=== PATIENT | female | born 1945 | race Caucasian/White ===

== ENCOUNTER 2019-08-06 10:30 | Outpatient (RCR) | payer MEDICARE, OTHER, SELFPAY ==
--- NOTE | 2019-06-07 17:30 | PT.OIE ---
Current Diagnoses Cystocele, unspecified (06/07/19) Other symptoms and signs involving the musculoskeletal system (06/07/19) Unspecified urinary incontinence (06/07/19) Visit Care Team Role Provider Type Margot Reyna MD Attending Provider Physician Specialty: Family Practice Address: [address] [place] [address], [id number] Email: Physical Therapy Initial Evaluation PT-OP-A Visit Information Start: 06/03/19 17:50 Freq: Status: Active Protocol: Document 06/07/19 10:37 LRN (Rec: 06/07/19 11:25 LRN [id number]) Out-Patient Physical Therapy Visit Information Visit Information Visit Type Initial Evaluation Visit Start Time 10:37 Visit Stop Time 11:25 Total Visit Minutes 48 Visit Number 1 Number of TELEVISION SPECIALIST Visits 0 Evaluation Information Evaluation Date 06/07/19 Precautions Precautions General arthritis, Slightly elevated blood pressure, no medication, Bruises easily, Irregular heartbeat with occasional SOB (normal ~70). BP ~130/70. PT-OP-B Current Condition Start: 06/03/19 17:50 Freq: Status: Active Protocol: Document 06/07/19 10:37 LRN (Rec: 06/07/19 11:25 LRN [id number]) Current Condition History of Current Condition Onset Date 1yr ago Current Complaints Feeling PF is open or tissues falling out. Leaks only with coughing History of Current Condition Pt reports she felt extra tissue in the PF like she was sitting on something, and felt dry. She reports a mild sensation of falling out or feeling open. Was restarted on Estrogen creme 2-3x/week. Denies pain. Pt has not had any children. Prior Treatments and Tests None Future Testing and Treatments Planned Inter-vaginal lift of bladder. Developmental History Developmental History Went to Urinary specialist Anita Lo, Chief of Urology at [facility], near [facility], and recommended PT before discussing of surgery. Treatment Goals Patient/Caregiver Goals Pt goal is to eliminate the feeling of sitting on tissue and falling out. Wants to learn what to do to prevent worsening of problem. 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 Can go several hours without urinating. Has been wearing liners (ultra skinny, 7th generation) Current Functional Impairments (Reported) Functional Limitations- ADL's Sitting on tissues. Dribbling urine, wears liner day and night (ultra skinny, not bladder leakage liners). 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 Live on [facility]). , no children. PT-OP-C Subjective Start: 06/03/19 17:50 Freq: Status: Active Protocol: Document 06/07/19 10:37 LRN (Rec: 06/07/19 11:25 LRN [id number]) OP-PT Subjective Patient Comments Patient Comments Was told by to increase fiber. PT-OP-I Pelvic Floor Start: 06/03/19 17:50 Freq: Status: Active Protocol: Document 06/07/19 10:37 LRN (Rec: 06/07/19 11:25 LRN [id number]) Pelvic Floor Assessment Urine Urinary Symptoms Prolapse,Falling Out Feeling/ Heavy Leakage Size Small Leakage Cause Cough Leaks Per Day unknown Pads Used In 24 Hours 1 Urine Pad Type Panty Liner Bowel Bowel Symptoms Constipation Other Bowel Symptoms Constipation sometimes. Bowel Movement Frequency Every other day at least Pelvic Clock Pelvic Clock Other [place] hardened fecal matter in Rectum Prolapse Cystocele Grade 1 Rectocele Grade 1 Perineal Descent Resting Absent Bearing Present Contraction Ability Manual Muscle Testing Left 1 Manual Muscle Testing Right 2 Manual Muscle Testing Anterior 1 Manual Muscle Testing Posterior 3 Muscle Endurance (Seconds) 2 Number of Quick Contractions In 10 3 Seconds Comments Pelvic Floor Comments Perineum is red. PT-OP-J Posture/Palpation/Skin Start: 06/03/19 17:50 Freq: Status: Active Protocol: Document 06/07/19 10:37 LRN (Rec: 06/07/19 11:25 LRN [id number]) Posture Evaluation Position Standing Evaluation View all positions T-Spine Posture Neutral L-Spine Posture Neutral Shoulder Posture (L) Elevated Pelvis Posture (L) Rotated Anterior,(R) Rotated Anterior Hip Posture (L) Flexed,(R) Flexed Ankle/Foot Posture (R) Forefoot Abducted Foot Arch (L) Medium Arch,(R) Medium Arch PT-OP-K Range of Motion Start: 06/03/19 17:50 Freq: Status: Active Protocol: Document 06/07/19 10:37 LRN (Rec: 06/07/19 11:25 LRN [id number]) Lumbar Spine Range of Motion Lumbar Spine Active Degrees Testing Position Standing Flexion 90 Extension 20 Lateral Flexion Left 8 Lateral Flexion Right 8 Hip Goniometric Range of Motion Hip Right Passive Testing Position Supine Straight Leg Raise 115 Internal Rotation 40 External Rotation 50 Left Passive Testing Position Supine Straight Leg Raise 115 Internal Rotation 45 External Rotation 50 PT-OP-M Strength Start: 06/03/19 17:50 Freq: Status: Active Protocol: Document 06/07/19 10:37 LRN (Rec: 06/07/19 11:25 LRN [id number]) Trunk Strength Trunk Manual Muscle Testing Comments Loss of core control with MMT of L hip flexion and ext. Hip Strength Hip Manual Muscle Testing Right Flexion (L2) 5 Normal Abduction 5 Normal Adduction 4 Good External Rotation 5 Normal Internal Rotation 5 Normal Comments Pain L SIJ with MMT Hip AD Left Flexion (L2) 5 Normal Abduction 5 Normal Adduction 5 Normal External Rotation 5 Normal Internal Rotation 5 Normal PT-OP-Q Treatments Start: 06/03/19 17:50 Freq: Status: Active Protocol: Document 06/07/19 10:37 LRN (Rec: 06/07/19 18:50 LRN [id number]) Self-Care/Home Management Treatment Education Patient Education Home Exercise Program Other Education Educated pt in use of Bladder Diary and I/S pt to complete 7 days of diary. Activities Self-Care/Home Management Activities Issued & reviewed Kegel ex's for long holds, quick flicks and aggrevators. PT-OP-T Assessment and Plan Start: 06/03/19 17:50 Freq: Status: Active Protocol: Document 06/07/19 10:37 LRN (Rec: 06/07/19 11:25 LRN [id number]) Physical Therapy Assessment Rehab Potential Rehabilitation Potential Good Evaluation Complexity Number of Personal Factors/Comorbidities 1-2 Number of Body Systems Impaired 4 or More Clinical Presentation at Evaluation Stable Impairments Impairments Integument,Posture,ROM, Strength Other Impairments Cystocele, Grade I Rectocele, Grade I Constipation Other Concerns Barriers to Rehabilitation Transportation limits living on [facility]. Goals Four Impairment Cytocele and Rectocele grade I Short Term Goal (STG) Pt will be able to report daily bowel movements (BMs) and proper technique for having a BM. STG Duration 07/09/19 Intermediate Goal (LTG) Pt will no longer feel a bulging of tissue in the PF. LTG Duration 08/06/19 Three Impairment Decreased strength of lateral greenwood and anterior PF muscle ( 1-2/5) Short Term Goal (STG) Improve lateral wall strength of the PF to 3/5. STG Duration 07/09/19 Expense Clerk Goal (LTG) Improve anterior PF strength to 3/5 LTG Duration 08/06/19 Two Impairment Poor PF endurance of 2-3 sec hold prior to fatigue Intermediate Goal (LTG) Pt will be able to hold a PF contraction 10 secs prior to fatigue. LTG Duration 08/06/19 One Impairment Lacks appropriate HEP Expense Clerk Goal (LTG) Pt will be independent in a self care HEP. LTG Duration 08/06/19 Assessment Summary Assessment Pt presents with a grade I cystocele and rectocele with complaints of occasional urinary dribbling with coughing. The pt's level of constipation is probably exacerbating her condition; therefore further education and training is needed to improve her method of having a BM to decrease pressure on the PF. Further assessment is needed to determine if the pt can isolate her PF contractions and the strength of her contractions. The pt lacks the coordination to draw the PF up and in and may need biofeedback training to improve her PF contraction. She has good trunk mobility and fairly good hip mobility but demonstrates some core instability on the left with possible SIJ dysfunction. The pt will benefit from skilled physical therapy to improve core/pelvic stability, improve PF strength and endurance and to educate the pt in proper voiding techniques (BMs), anatomy of the PF and self care on a HEP. Physical Therapy Plan Frequency and Duration Frequency of Treatment 1x/Week Plan of Care Start Date 06/07/19 Plan of Care End Date 08/06/19 Therapeutic Interventions Therapeutic Interventions Coordination Training,Home Exercise Program,Joint Mobilizations,Manual Therapy, Neuromuscular Re-education, Patient/Caregiver Education, Self-Care/Home Management,Soft Tissue Mobilization, Therapeutic Exercises Modalities Cold Pack/Ice Massage Next Visit Focus/Plan Next Note Type Treatment Note Next Visit Plan Review Bladder Diary and Kegels with attention to use of accessory muscles with her PF contraction. EMG biofeedback assessment and training with a vaginal electrode and training for awareness of a proper PF contraction. Discuss PF anatomy and impact the bowels can have on the urinary system . Start deep breathing with LE Roll in/out ex and progress PF strength as tolerated. Discuss other ex's that may be impacting her PF.
--- NOTE | 2019-07-02 16:53 | PT.OTN ---
Current Diagnoses Cystocele, unspecified (07/02/19) Other symptoms and signs involving the musculoskeletal system (07/02/19) Unspecified urinary incontinence (07/02/19) Physical Therapy Treatment Note PT-OP-A Visit Information Start: 06/03/19 17:50 Freq: Status: Active Protocol: Document 07/02/19 09:49 LRN (Rec: 07/02/19 10:37 LRN [id number]) Out-Patient Physical Therapy Visit Information Visit Information Visit Type Treatment Note Visit Start Time 09:50 Visit Stop Time 10:37 Total Visit Minutes 47 Visit Number 2 Number of RESEARCH CONTRACTS SUPERVISOR Visits 0 Evaluation Information Evaluation Date 06/07/19 Precautions Precautions General arthritis, Slightly elevated blood pressure, no medication, Bruises easily, Irregular heartbeat with occasional SOB (normal ~70). BP ~130/70. PT-OP-B Current Condition Start: 06/03/19 17:50 Freq: Status: Active Protocol: Document 06/07/19 10:37 LRN (Rec: 06/07/19 11:25 LRN [id number]) Current Condition History of Current Condition Onset Date 1yr ago Current Complaints Feeling PF is open or tissues falling out. Leaks only with coughing History of Current Condition Pt reports she felt extra tissue in the PF like she was sitting on something, and felt dry. She reports a mild sensation of falling out or feeling open. Was restarted on Estrogen creme 2-3x/week. Denies pain. Pt has not had any children. Prior Treatments and Tests None Future Testing and Treatments Planned Inter-vaginal lift of bladder. Developmental History Developmental History Went to Urinary specialist Anita Lo, Chief of Urology at [facility], near [facility], and recommended PT before discussing of surgery. Treatment Goals Patient/Caregiver Goals Pt goal is to eliminate the feeling of sitting on tissue and falling out. Wants to learn what to do to prevent worsening of problem. 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 Can go several hours without urinating. Has been wearing liners (ultra skinny, 7th generation) Current Functional Impairments (Reported) Functional Limitations- ADL's Sitting on tissues. Dribbling urine, wears liner day and night (ultra skinny, not bladder leakage liners). 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 Live on [place] ([facility]). , no children. PT-OP-C Subjective Start: 06/03/19 17:50 Freq: Status: Active Protocol: Document 07/02/19 09:49 LRN (Rec: 07/02/19 10:37 LRN [id number]) OP-PT Subjective Patient Comments Patient Comments Not using pads as much and noticed a difference with the exercises (Kegels), unless taking Estrace. Getting stronger, doesn't feel like sitting on the insides and doesn't feel as dry. PT-OP-I Pelvic Floor Start: 06/03/19 17:50 Freq: Status: Active Protocol: Document 07/02/19 09:49 LRN (Rec: 07/02/19 10:37 LRN [id number]) Pelvic Floor Assessment SEMG (uV) Baseline 0.9 Quick Contraction 5.1 Recruitment Pattern Good Holding Poor/Slow Stability of Hold Poor/Slow SEMG Stability of Rest Fair Comments Pelvic Floor Comments Pt in supine with legs on bolster. Uses Gluteal and abdominal muscles more on Quick Flicks than Long Holds. PT-OP-J Posture/Palpation/Skin Start: 06/03/19 17:50 Freq: Status: Active Protocol: Document 06/07/19 10:37 LRN (Rec: 06/07/19 11:25 LRN [id number]) Posture Evaluation Position Standing Evaluation View all positions T-Spine Posture Neutral L-Spine Posture Neutral Shoulder Posture (L) Elevated Pelvis Posture (L) Rotated Anterior,(R) Rotated Anterior Hip Posture (L) Flexed,(R) Flexed Ankle/Foot Posture (R) Forefoot Abducted Foot Arch (L) Medium Arch,(R) Medium Arch PT-OP-K Range of Motion Start: 06/03/19 17:50 Freq: Status: Active Protocol: Document 06/07/19 10:37 LRN (Rec: 06/07/19 11:25 LRN [id number]) Lumbar Spine Range of Motion Lumbar Spine Active Degrees Testing Position Standing Flexion 90 Extension 20 Lateral Flexion Left 8 Lateral Flexion Right 8 Hip Goniometric Range of Motion Hip Right Passive Testing Position Supine Straight Leg Raise 115 Internal Rotation 40 External Rotation 50 Left Passive Testing Position Supine Straight Leg Raise 115 Internal Rotation 45 External Rotation 50 PT-OP-M Strength Start: 06/03/19 17:50 Freq: Status: Active Protocol: Document 06/07/19 10:37 LRN (Rec: 06/07/19 11:25 LRN [id number]) Trunk Strength Trunk Manual Muscle Testing Comments Loss of core control with MMT of L hip flexion and ext. Hip Strength Hip Manual Muscle Testing Right Flexion (L2) 5 Normal Abduction 5 Normal Adduction 4 Good External Rotation 5 Normal Internal Rotation 5 Normal Comments Pain L SIJ with MMT Hip AD Left Flexion (L2) 5 Normal Abduction 5 Normal Adduction 5 Normal External Rotation 5 Normal Internal Rotation 5 Normal PT-OP-Q Treatments Start: 06/03/19 17:50 Freq: Status: Active Protocol: Document 07/02/19 09:49 LRN (Rec: 07/02/19 10:37 LRN [id number]) Therapeutic Exercises Supine Exercises PF awareness training Supine Exercise Name PF awareness training of different ex positions and leg positions PF strengthening w/biofeedback Supine Exercise Name Quick Flicks & Long Holds for isolation of PF contraction Equipment Used EMG Biofeedback Self-Care/Home Management Treatment Education Patient Education Home Exercise Program Other Education Review of Bladder Diary and discussion of changes. Pt educated in Pelvic anatomy. Discussed at length Bowel management. Activities Self-Care/Home Management Activities Discussed POC with pt decreasing # of visits per month. Issued Pelvic anatomy handout. Pt to continue Kegel ex's. PT-OP-T Assessment and Plan Start: 06/03/19 17:50 Freq: Status: Active Protocol: Document 07/02/19 09:49 LRN (Rec: 07/02/19 10:37 LRN [id number]) Physical Therapy Assessment Goals Four Impairment Cytocele and Rectocele grade I Short Term Goal (STG) Pt will be able to report daily bowel movements (BMs) and proper technique for having a BM. STG Duration 07/09/19 Fiscal Agent Goal (LTG) Pt will no longer feel a bulging of tissue in the PF. LTG Duration 08/06/19 (07/02/19: GOAL MET to pt's satisfaction). Three Impairment Decreased strength of lateral greenwood and anterior PF muscle ( 1-2/5) Short Term Goal (STG) Improve lateral wall strength of the PF to 3/5. STG Duration 07/09/19 Penitentiary Goal (LTG) Improve anterior PF strength to 3/5 LTG Duration 08/06/19 Two Impairment Poor PF endurance of 2-3 sec hold prior to fatigue Penitentiary Goal (LTG) Pt will be able to hold a PF contraction 10 secs prior to fatigue. LTG Duration 08/06/19 One Impairment Lacks appropriate HEP Penitentiary Goal (LTG) Pt will be independent in a self care HEP. LTG Duration 08/06/19 (07/06/19: Progressing) Assessment Summary Assessment Pt is very happy with her progress and is no longer noticing much the feeling of her organs falling out. Her voiding frequency has decreased and she is very happy to be sleeping through the night. Per bladder diary review she appears to need more fluid intake, but voiding frequency is good at every 2- 4 hours. She has long voiding times, indicating poor urinary voiding flow probably due to prolapse of bladder and probably mild urethra kinking . Further PF strengthening is needed as per EMG biofeedback her PF strength is weak with avg contraction for Quick Flicks (20 reps) of 5.1uV and Long Holds (10 reps) of 3.7uV, as noted with assist from her Gluteals and abdominals during Quick Flicks and slightly during Long Holds. Physical Therapy Plan Frequency and Duration Frequency of Treatment 1x/Week Plan of Care Start Date 06/07/19 Plan of Care End Date 08/06/19 Next Visit Focus/Plan Next Note Type Treatment Note Next Visit Plan Plan: Assess PF internally. Train for proper breathing with exercise and practice exercise/breathing. Initiate LE roll in/outs with breathing and progressive program; review her current ex program that may be impacting her PF. Emphasis on isolation of PF contractions. EMG biofeedback assessment and training with a vaginal electrode and training for awareness of a proper PF contraction if needed. Decrease therapy to 1x/3 wks for final follow up unless pt wants and needs further progression of program.
--- NOTE | 2019-07-16 16:33 | PT.OTN ---
Current Diagnoses Cystocele, unspecified (07/16/19) Other symptoms and signs involving the musculoskeletal system (07/16/19) Unspecified urinary incontinence (07/16/19) Physical Therapy Treatment Note PT-OP-A Visit Information Start: 06/03/19 17:50 Freq: Status: Active Protocol: Document 07/16/19 10:39 LRN (Rec: 07/16/19 11:17 LRN [id number]) Out-Patient Physical Therapy Visit Information Visit Information Visit Type Treatment Note Visit Start Time 10:39 Visit Stop Time 11:17 Total Visit Minutes 38 Visit Number 3 Number of LEARN TO SWIM INSTRUCTOR Visits 0 Evaluation Information Evaluation Date 06/07/19 Precautions Precautions General arthritis, Slightly elevated blood pressure, no medication, Bruises easily, Irregular heartbeat with occasional SOB (normal ~70). BP ~130/70. PT-OP-B Current Condition Start: 06/03/19 17:50 Freq: Status: Active Protocol: Document 06/07/19 10:37 LRN (Rec: 06/07/19 11:25 LRN [id number]) Current Condition History of Current Condition Onset Date 1yr ago Current Complaints Feeling PF is open or tissues falling out. Leaks only with coughing History of Current Condition Pt reports she felt extra tissue in the PF like she was sitting on something, and felt dry. She reports a mild sensation of falling out or feeling open. Was restarted on Estrogen creme 2-3x/week. Denies pain. Pt has not had any children. Prior Treatments and Tests None Future Testing and Treatments Planned Inter-vaginal lift of bladder. Developmental History Developmental History Went to Urinary specialist Anita Lo, Chief of Urology at [facility]rology, near [facility], and recommended PT before discussing of surgery. Treatment Goals Patient/Caregiver Goals Pt goal is to eliminate the feeling of sitting on tissue and falling out. Wants to learn what to do to prevent worsening of problem. 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 Can go several hours without urinating. Has been wearing liners (ultra skinny, 7th generation) Current Functional Impairments (Reported) Functional Limitations- ADL's Sitting on tissues. Dribbling urine, wears liner day and night (ultra skinny, not bladder leakage liners). 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 Live on [place] ([facility]). , no children. PT-OP-C Subjective Start: 06/03/19 17:50 Freq: Status: Active Protocol: Document 07/16/19 10:39 LRN (Rec: 07/16/19 16:10 LRN [id number]) OP-PT Subjective Patient Comments Patient Comments States not feeling bulge when sitting, only when washing. Extremely happy she is not having to get up in the middle of the night anymore. Thinks she is having mostly daily BM 's. PT-OP-I Pelvic Floor Start: 06/03/19 17:50 Freq: Status: Active Protocol: Document 07/16/19 10:39 LRN (Rec: 07/16/19 16:10 LRN [id number]) Pelvic Floor Assessment Bowel Bowel Symptoms Constipation Other Bowel Symptoms Constipation sometimes. Bowel Movement Frequency Not often. Prolapse Cystocele Grade 1 Rectocele Grade 1 Perineal Descent Resting Absent Bearing Present Contraction Ability Manual Muscle Testing Left 1 Manual Muscle Testing Right 2 Manual Muscle Testing Anterior 1 Manual Muscle Testing Posterior 3 Muscle Endurance (Seconds) 3 Comments Pelvic Floor Comments Pt in supine with legs on bolster. Pt able to isolate PF contraction from gluteal and abdominal muscles. Quick Contractions not felt. PT-OP-J Posture/Palpation/Skin Start: 06/03/19 17:50 Freq: Status: Active Protocol: Document 06/07/19 10:37 LRN (Rec: 06/07/19 11:25 LRN [id number]) Posture Evaluation Position Standing Evaluation View all positions T-Spine Posture Neutral L-Spine Posture Neutral Shoulder Posture (L) Elevated Pelvis Posture (L) Rotated Anterior,(R) Rotated Anterior Hip Posture (L) Flexed,(R) Flexed Ankle/Foot Posture (R) Forefoot Abducted Foot Arch (L) Medium Arch,(R) Medium Arch PT-OP-K Range of Motion Start: 06/03/19 17:50 Freq: Status: Active Protocol: Document 06/07/19 10:37 LRN (Rec: 06/07/19 11:25 LRN [id number]) Lumbar Spine Range of Motion Lumbar Spine Active Degrees Testing Position Standing Flexion 90 Extension 20 Lateral Flexion Left 8 Lateral Flexion Right 8 Hip Goniometric Range of Motion Hip Right Passive Testing Position Supine Straight Leg Raise 115 Internal Rotation 40 External Rotation 50 Left Passive Testing Position Supine Straight Leg Raise 115 Internal Rotation 45 External Rotation 50 PT-OP-M Strength Start: 06/03/19 17:50 Freq: Status: Active Protocol: Document 06/07/19 10:37 LRN (Rec: 06/07/19 11:25 LRN [id number]) Trunk Strength Trunk Manual Muscle Testing Comments Loss of core control with MMT of L hip flexion and ext. Hip Strength Hip Manual Muscle Testing Right Flexion (L2) 5 Normal Abduction 5 Normal Adduction 4 Good External Rotation 5 Normal Internal Rotation 5 Normal Comments Pain L SIJ with MMT Hip AD Left Flexion (L2) 5 Normal Abduction 5 Normal Adduction 5 Normal External Rotation 5 Normal Internal Rotation 5 Normal PT-OP-Q Treatments Start: 06/03/19 17:50 Freq: Status: Active Protocol: Document 07/16/19 10:39 LRN (Rec: 07/16/19 11:17 LRN [id number]) Therapeutic Exercises Supine Exercises Bridge ball squeeze w/hip in IR Supine Exercise Name Bridge w/feet spread for ball squeeze Reps/Minutes 5' Comments Emphasis on anterior PF contraction. Extra time taken for rest periods. Ball Squeeze w/hips in IR Supine Exercise Name Hooklie w/feet spread for ball squeeze Reps/Minutes 5' Comments Emphasis on anterior PF contraction. Extra time taken for rest periods. Ball Squeeze Supine Exercise Name Ball Squeeze w/emphasis on L hip AD Reps/Minutes 5' Comments Extra time taken for rest periods. PF strengthening w/biofeedback Supine Exercise Name Quick Flicks & Long Holds Reps/Minutes 5' Comments Manual biofeedback. Extra time taken for rest periods. Sidelying Exercises Hip AD w/Kegel Sidelying Exercise Name Hip AD w/Kegel, Quick Flicks & Long Holds Reps/Minutes 14' Comments Resting time 2x holding. Extra time taken for rest periods. Self-Care/Home Management Treatment Education Patient Education Home Exercise Program Activities Self-Care/Home Management Activities Issued & reviewed HEP: Hip AD sidelie, supine and sitting; Bridging with hip AD/IR. PT-OP-T Assessment and Plan Start: 06/03/19 17:50 Freq: Status: Active Protocol: Document 07/16/19 10:39 LRN (Rec: 07/16/19 11:17 LRN [id number]) Physical Therapy Assessment Goals Four Impairment Cytocele and Rectocele grade I Short Term Goal (STG) Pt will be able to report daily bowel movements (BMs) and proper technique for having a BM. STG Duration 07/09/19 (07/16/19: GOAL MET to pt's satisfaction) Long-Term Goal (LTG) Pt will no longer feel a bulging of tissue in the PF. LTG Duration 08/06/19 (07/02/19: GOAL MET to pt's satisfaction). Three Impairment Decreased strength of lateral greenwood and anterior PF muscle ( 1-2/5) Short Term Goal (STG) Improve lateral wall strength of the PF to 3/5. STG Duration 07/09/19 (07/16/19: No change) Long-Term Goal (LTG) Improve anterior PF strength to 3/5 LTG Duration 08/06/19 (07/16/19: No change ) Two Impairment Poor PF endurance of 2-3 sec hold prior to fatigue Mutual Fund Sales Agent Goal (LTG) Pt will be able to hold a PF contraction 10 secs prior to fatigue. LTG Duration 08/06/19 (07/16/19: Slightly improved) One Impairment Lacks appropriate HEP Long-Term Goal (LTG) Pt will be independent in a self care HEP. LTG Duration 08/06/19 (07/16/19: Progressing) Assessment Summary Assessment Pt is improved in her bowel function; therefore cystocele is less noticeable. Pt's PF strength needs further strengthening. Her posterior PF strength is improved and although strength measured hasn't changed, her strength today was in mostly isolation of her abdominal and gluteal muscles; therefore overall her PF strength has improved. Her L lateral remains weaker than the R. Physical Therapy Plan Frequency and Duration Frequency of Treatment 1x/Week Plan of Care Start Date 06/07/19 Plan of Care End Date 08/06/19 Next Visit Focus/Plan Next Note Type Treatment Note Next Visit Plan Discuss cont of therapy 1/3 weeks for progression of her HEP. Assess adherence to HEP and if time permits assess PF strength. Train for proper breathing with exercise and practice exercise/breathing. Initiate LE roll in/outs with breathing and progressive program; review her current ex program that may be impacting her PF. Check for isolation of PF contractions from abs & gluts. EMG biofeedback assessment and training with a vaginal electrode and training for awareness of a proper PF contraction if needed.
--- NOTE | 2019-08-06 18:11 | PT.OTN ---
Current Diagnoses Cystocele, unspecified (08/06/19) Other symptoms and signs involving the musculoskeletal system (08/06/19) Unspecified urinary incontinence (08/06/19) Physical Therapy Treatment Note PT-OP-A Visit Information Start: 06/03/19 17:50 Freq: Status: Active Protocol: Document 08/06/19 11:06 LRN (Rec: 08/06/19 17:57 LRN [id number]) Out-Patient Physical Therapy Visit Information Visit Information Visit Type Progress Note Visit Note Pt arrived late for appt Visit Start Time 11:06 Visit Stop Time 11:30 Total Visit Minutes 24 Visit Number 4 Number of SEWER DIGGER Visits 0 Evaluation Information Evaluation Date 06/07/19 Precautions Precautions General arthritis, Slightly elevated blood pressure, no medication, Bruises easily, Irregular heartbeat with occasional SOB (normal ~70). BP ~130/70. PT-OP-B Current Condition Start: 06/03/19 17:50 Freq: Status: Active Protocol: Document 06/07/19 10:37 LRN (Rec: 06/07/19 11:25 LRN [id number]) Current Condition History of Current Condition Onset Date 1yr ago Current Complaints Feeling PF is open or tissues falling out. Leaks only with coughing History of Current Condition Pt reports she felt extra tissue in the PF like she was sitting on something, and felt dry. She reports a mild sensation of falling out or feeling open. Was restarted on Estrogen creme 2-3x/week. Denies pain. Pt has not had any children. Prior Treatments and Tests None Future Testing and Treatments Planned Inter-vaginal lift of bladder. Developmental History Developmental History Went to Urinary specialist Anita Lo, Chief of Urology at Urology, near [facility], and recommended PT before discussing of surgery. Treatment Goals Patient/Caregiver Goals Pt goal is to eliminate the feeling of sitting on tissue and falling out. Wants to learn what to do to prevent worsening of problem. 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 Can go several hours without urinating. Has been wearing liners (ultra skinny, 7th generation) Current Functional Impairments (Reported) Functional Limitations- ADL's Sitting on tissues. Dribbling urine, wears liner day and night (ultra skinny, not bladder leakage liners). 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 Live on [facility]). , no children. PT-OP-C Subjective Start: 06/03/19 17:50 Freq: Status: Active Protocol: Document 08/06/19 11:06 LRN (Rec: 08/06/19 17:57 LRN [id number]) OP-PT Subjective Patient Comments Patient Comments Pt states she is leaking a drop first thing in the morning and is using pad because of her PF cream. She is also drinking more water. Not feeling the bulge as much . PT-OP-I Pelvic Floor Start: 06/03/19 17:50 Freq: Status: Active Protocol: Document 07/16/19 10:39 LRN (Rec: 07/16/19 16:10 LRN [id number]) Pelvic Floor Assessment Bowel Bowel Symptoms Constipation Other Bowel Symptoms Constipation sometimes. Bowel Movement Frequency Not often. Prolapse Cystocele Grade 1 Rectocele Grade 1 Perineal Descent Resting Absent Bearing Present Contraction Ability Manual Muscle Testing Left 1 Manual Muscle Testing Right 2 Manual Muscle Testing Anterior 1 Manual Muscle Testing Posterior 3 Muscle Endurance (Seconds) 3 Comments Pelvic Floor Comments Pt in supine with legs on bolster. Pt able to isolate PF contraction from gluteal and abdominal muscles. Quick Contractions not felt. PT-OP-J Posture/Palpation/Skin Start: 06/03/19 17:50 Freq: Status: Active Protocol: Document 06/07/19 10:37 LRN (Rec: 06/07/19 11:25 LRN [id number]) Posture Evaluation Position Standing Evaluation View all positions T-Spine Posture Neutral L-Spine Posture Neutral Shoulder Posture (L) Elevated Pelvis Posture (L) Rotated Anterior,(R) Rotated Anterior Hip Posture (L) Flexed,(R) Flexed Ankle/Foot Posture (R) Forefoot Abducted Foot Arch (L) Medium Arch,(R) Medium Arch PT-OP-K Range of Motion Start: 06/03/19 17:50 Freq: Status: Active Protocol: Document 06/07/19 10:37 LRN (Rec: 06/07/19 11:25 LRN [id number]) Lumbar Spine Range of Motion Lumbar Spine Active Degrees Testing Position Standing Flexion 90 Extension 20 Lateral Flexion Left 8 Lateral Flexion Right 8 Hip Goniometric Range of Motion Hip Right Passive Testing Position Supine Straight Leg Raise 115 Internal Rotation 40 External Rotation 50 Left Passive Testing Position Supine Straight Leg Raise 115 Internal Rotation 45 External Rotation 50 PT-OP-M Strength Start: 06/03/19 17:50 Freq: Status: Active Protocol: Document 06/07/19 10:37 LRN (Rec: 06/07/19 11:25 LRN [id number]) Trunk Strength Trunk Manual Muscle Testing Comments Loss of core control with MMT of L hip flexion and ext. Hip Strength Hip Manual Muscle Testing Right Flexion (L2) 5 Normal Abduction 5 Normal Adduction 4 Good External Rotation 5 Normal Internal Rotation 5 Normal Comments Pain L SIJ with MMT Hip AD Left Flexion (L2) 5 Normal Abduction 5 Normal Adduction 5 Normal External Rotation 5 Normal Internal Rotation 5 Normal PT-OP-Q Treatments Start: 06/03/19 17:50 Freq: Status: Active Protocol: Document 08/06/19 11:06 LRN (Rec: 08/06/19 17:57 LRN [id number]) Therapeutic Exercises Supine Exercises LE Roll in/out Supine Exercise Name LE roll in/outs with deep breathing Reps/Minutes 10 Deep Breathing Supine Exercise Name Deep breathing Reps/Minutes 3' Sidelying Exercises Reverse Clamshell Sidelying Exercise Name Reverse Clamshell instructions Reps/Minutes 3' Standing Exercises Hamstring stretch w/PF contraction Standing Exercise Name Hamstring stretch w/PF contraction Reps/Minutes 4' Self-Care/Home Management Treatment Education Patient Education Home Exercise Program Activities Self-Care/Home Management Activities Issued & Reviewed HEP: Active standing Hamstring stretch with PF contraction; sidelie reverse clamshell, LE roll in/out. PT-OP-T Assessment and Plan Start: 06/03/19 17:50 Freq: Status: Active Protocol: Document 08/06/19 11:06 LRN (Rec: 08/06/19 18:09 LRN [id number]) Physical Therapy Assessment Rehab Potential Rehabilitation Potential Good Evaluation Complexity Number of Personal Factors/Comorbidities 1-2 Number of Body Systems Impaired 4 or More Clinical Presentation at Evaluation Stable Impairments Impairments Integument,Posture,ROM, Strength Other Impairments Cystocele, Grade I Rectocele, Grade I Constipation Goals Four Impairment Cytocele and Rectocele grade I Short Term Goal (STG) Pt will be able to report daily bowel movements (BMs) and proper technique for having a BM. STG Duration 07/09/19 (07/16/19: GOAL MET to pt's satisfaction) Penitentiary Goal (LTG) Pt will no longer feel a bulging of tissue in the PF. LTG Duration 08/06/19 (07/02/19: GOAL MET to pt's satisfaction). Three Impairment Decreased strength of lateral greenwood and anterior PF muscle ( 1-2/5) Short Term Goal (STG) Improve lateral wall strength of the PF to 3/5. STG Duration 07/09/19 (07/16/19: No change) Um Rn Goal (LTG) Improve anterior PF strength to 3/5 LTG Duration 08/06/19 (07/16/19: No change ) Two Impairment Poor PF endurance of 2-3 sec hold prior to fatigue Um Rn Goal (LTG) Pt will be able to hold a PF contraction 10 secs prior to fatigue. LTG Duration 08/06/19 (07/16/19: Slightly improved) One Impairment Lacks appropriate HEP Penitentiary Goal (LTG) Pt will be independent in a self care HEP. LTG Duration 08/06/19 (08/06/19: Progressing) Assessment Summary Assessment The pt arrived late for her appt; therefore her PF strength and endurance was not assessed. Her symptoms have very much improved. She is experiencing minor urinary leakage and is sometimes feeling a bulge in her PF region. The pt could benefit from further skilled physical therapy to progress her HEP and strengthen her lateral greewnood of the PF and improve her strength and endurance. The pt is willing to return for at least one more visit to further her exercise program and for assessment of her PF. She may opt to be discharged to her HEP at that time or continue therapy, further discussion is needed. Physical Therapy Plan Frequency and Duration Frequency of Treatment 1x/Week Plan of Care Start Date 06/07/19 Plan of Care End Date 09/21/19 Therapeutic Interventions Therapeutic Interventions Coordination Training,Home Exercise Program,Joint Mobilizations,Manual Therapy, Neuromuscular Re-education, Patient/Caregiver Education, Self-Care/Home Management,Soft Tissue Mobilization, Therapeutic Exercises Next Visit Focus/Plan Next Note Type Treatment Note Next Visit Plan Discuss DC or cont of therapy 1/3 weeks for progression of her HEP. -Assess adherence to HEP and assess PF strength/endurance. -Train for proper breathing with exercise and practice exercise/breathing. -Check for isolation of PF contractions from abs & gluts. -Progress LE roll in/outs with breathing; review her current ex program that may be impacting her PF. -EMG biofeedback assessment and training with a vaginal electrode and training for awareness of a proper PF contraction if needed.
--- NOTE | 2019-08-06 18:12 | PT.OPPOC ---
Physical, Occupational & Speech Therapy At [facility] Current Diagnoses Cystocele, unspecified (08/06/19) Other symptoms and signs involving the musculoskeletal system (08/06/19) Unspecified urinary incontinence (08/06/19) Visit Care Team Role Provider Type Margot Reyna MD Attending Provider Physician Specialty: Family Practice Address: [address] [place] [address], [facility] Email: Plan Of Care PT-OP-T Assessment and Plan Start: 06/03/19 17:50 Freq: Status: Active Protocol: Document 08/06/19 11:06 LRN (Rec: 08/06/19 18:09 LRN [id number]) Physical Therapy Assessment Rehab Potential Rehabilitation Potential Good Evaluation Complexity Number of Personal Factors/Comorbidities 1-2 Number of Body Systems Impaired 4 or More Clinical Presentation at Evaluation Stable Impairments Impairments Integument,Posture,ROM, Strength Other Impairments Cystocele, Grade I Rectocele, Grade I Constipation Goals Four Impairment Cytocele and Rectocele grade I Short Term Goal (STG) Pt will be able to report daily bowel movements (BMs) and proper technique for having a BM. STG Duration 07/09/19 (07/16/19: GOAL MET to pt's satisfaction) Snf Goal (LTG) Pt will no longer feel a bulging of tissue in the PF. LTG Duration 08/06/19 (07/02/19: GOAL MET to pt's satisfaction). Three Impairment Decreased strength of lateral greenwood and anterior PF muscle ( 1-2/5) Short Term Goal (STG) Improve lateral wall strength of the PF to 3/5. STG Duration 07/09/19 (07/16/19: No change) Rock Wool Applicator Goal (LTG) Improve anterior PF strength to 3/5 LTG Duration 08/06/19 (07/16/19: No change ) Two Impairment Poor PF endurance of 2-3 sec hold prior to fatigue Snf Goal (LTG) Pt will be able to hold a PF contraction 10 secs prior to fatigue. LTG Duration 08/06/19 (07/16/19: Slightly improved) One Impairment Lacks appropriate HEP Rock Wool Applicator Goal (LTG) Pt will be independent in a self care HEP. LTG Duration 08/06/19 (08/06/19: Progressing) Assessment Summary Assessment The pt arrived late for her appt; therefore her PF strength and endurance was not assessed. Her symptoms have very much improved. She is experiencing minor urinary leakage and is sometimes feeling a bulge in her PF region. The pt could benefit from further skilled physical therapy to progress her HEP and strengthen her lateral greenwood of the PF and improve her strength and endurance. The pt is willing to return for at least one more visit to further her exercise program and for assessment of her PF. She may opt to be discharged to her HEP at that time or continue therapy, further discussion is needed. Physical Therapy Plan Frequency and Duration Frequency of Treatment 1x/Week Plan of Care Start Date 06/07/19 Plan of Care End Date 09/21/19 Therapeutic Interventions Therapeutic Interventions Coordination Training,Home Exercise Program,Joint Mobilizations,Manual Therapy, Neuromuscular Re-education, Patient/Caregiver Education, Self-Care/Home Management,Soft Tissue Mobilization, Therapeutic Exercises Next Visit Focus/Plan Next Note Type Treatment Note Next Visit Plan Discuss DC or cont of therapy 1/3 weeks for progression of her HEP. -Assess adherence to HEP and assess PF strength/endurance. -Train for proper breathing with exercise and practice exercise/breathing. -Check for isolation of PF contractions from abs & gluts. -Progress LE roll in/outs with breathing; review her current ex program that may be impacting her PF. -EMG biofeedback assessment and training with a vaginal electrode and training for awareness of a proper PF contraction if needed. Plan of Care Dates Plan of Care Start Date 06/07/19 Plan of Care End Date 09/21/19 Electronically Signed by: Becky Bergman, PT 08/06/19 [id number] Please Sign and Return: I have reviewed this Plan of Care and certify that the skilled therapy services above are required to meet the patient?s needs. Physician Signature Date Printed Name and Credentials Clinical Instructor Signature Printed Name and Credentials
--- NOTE | 2019-10-25 15:28 | PT-OP ANOTE ---
Unable to reach pt by phone. Msg left for call back tomorrow 8-10a, or for pt to call back for better time for call back.
--- NOTE | 2020-03-20 17:29 | PT-OP ANOTE ---
Per telephone, pt has been catching up on other medical visits since reopening after COVID 19 pandemic. She is doing ex's and applying information gained from her therapy and will seek a new PT referral if she feels the need to return for more pelvic floor rehabilitation. Pt agreeable to DC from PT.
--- NOTE | 2020-03-20 17:35 | PT.OPDS ---
Current Diagnoses Cystocele, unspecified (08/06/19) Other symptoms and signs involving the musculoskeletal system (08/06/19) Unspecified urinary incontinence (08/06/19) Visit Care Team Role Provider Type Margot Reyna MD Attending Provider Physician Specialty: Family Practice Address: [address] [place] [address], [id number] Email: Visit Number Visit Number 4 Discharge Summary PT-OP-B Current Condition Start: 06/03/19 17:50 Freq: Status: Active Protocol: Document 06/07/19 10:37 LRN (Rec: 06/07/19 11:25 LRN [id number]) Current Condition History of Current Condition Onset Date 1yr ago Current Complaints Feeling PF is open or tissues falling out. Leaks only with coughing History of Current Condition Pt reports she felt extra tissue in the PF like she was sitting on something, and felt dry. She reports a mild sensation of falling out or feeling open. Was restarted on Estrogen creme 2-3x/week. Denies pain. Pt has not had any children. Prior Treatments and Tests None Future Testing and Treatments Planned Inter-vaginal lift of bladder. Developmental History Developmental History Went to Urinary specialist Anita Lo, [facility] of [facility] near [facility], and recommended PT before discussing of surgery. Treatment Goals Patient/Caregiver Goals Pt goal is to eliminate the feeling of sitting on tissue and falling out. Wants to learn what to do to prevent worsening of problem. 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 Can go several hours without urinating. Has been wearing liners (ultra skinny, 7th generation) Current Functional Impairments (Reported) Functional Limitations- ADL's Sitting on tissues. Dribbling urine, wears liner day and night (ultra skinny, not bladder leakage liners). 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 Live on [place] ([facility]). , no children. PT-OP-C Subjective Start: 06/03/19 17:50 Freq: Status: Active Protocol: Document 08/06/19 11:06 LRN (Rec: 08/06/19 17:57 LRN [id number]) OP-PT Subjective Patient Comments Patient Comments Pt states she is leaking a drop first thing in the morning and is using pad because of her PF cream. She is also drinking more water. Not feeling the bulge as much . PT-OP-I Pelvic Floor Start: 06/03/19 17:50 Freq: Status: Active Protocol: Document 07/16/19 10:39 LRN (Rec: 07/16/19 16:10 LRN [id number]) Pelvic Floor Assessment Bowel Bowel Symptoms Constipation Other Bowel Symptoms Constipation sometimes. Bowel Movement Frequency Not often. Prolapse Cystocele Grade 1 Rectocele Grade 1 Perineal Descent Resting Absent Bearing Present Contraction Ability Manual Muscle Testing Left 1 Manual Muscle Testing Right 2 Manual Muscle Testing Anterior 1 Manual Muscle Testing Posterior 3 Muscle Endurance (Seconds) 3 Comments Pelvic Floor Comments Pt in supine with legs on bolster. Pt able to isolate PF contraction from gluteal and abdominal muscles. Quick Contractions not felt. PT-OP-J Posture/Palpation/Skin Start: 06/03/19 17:50 Freq: Status: Active Protocol: Document 06/07/19 10:37 LRN (Rec: 06/07/19 11:25 LRN [id number]) Posture Evaluation Position Standing Evaluation View all positions T-Spine Posture Neutral L-Spine Posture Neutral Shoulder Posture (L) Elevated Pelvis Posture (L) Rotated Anterior,(R) Rotated Anterior Hip Posture (L) Flexed,(R) Flexed Ankle/Foot Posture (R) Forefoot Abducted Foot Arch (L) Medium Arch,(R) Medium Arch PT-OP-K Range of Motion Start: 06/03/19 17:50 Freq: Status: Active Protocol: Document 06/07/19 10:37 LRN (Rec: 06/07/19 11:25 LRN [id number]) Lumbar Spine Range of Motion Lumbar Spine Active Degrees Testing Position Standing Flexion 90 Extension 20 Lateral Flexion Left 8 Lateral Flexion Right 8 Hip Goniometric Range of Motion Hip Right Passive Testing Position Supine Straight Leg Raise 115 Internal Rotation 40 External Rotation 50 Left Passive Testing Position Supine Straight Leg Raise 115 Internal Rotation 45 External Rotation 50 PT-OP-M Strength Start: 06/03/19 17:50 Freq: Status: Active Protocol: Document 06/07/19 10:37 LRN (Rec: 06/07/19 11:25 LRN [id number]) Trunk Strength Trunk Manual Muscle Testing Comments Loss of core control with MMT of L hip flexion and ext. Hip Strength Hip Manual Muscle Testing Right Flexion (L2) 5 Normal Abduction 5 Normal Adduction 4 Good External Rotation 5 Normal Internal Rotation 5 Normal Comments Pain L SIJ with MMT Hip AD Left Flexion (L2) 5 Normal Abduction 5 Normal Adduction 5 Normal External Rotation 5 Normal Internal Rotation 5 Normal PT-OP-T Assessment and Plan Start: 06/03/19 17:50 Freq: Status: Active Protocol: Document 03/20/20 17:31 LRN (Rec: 03/20/20 17:35 LRN [id number]) Physical Therapy Assessment Goals Four Impairment Cytocele and Rectocele grade I Short Term Goal (STG) Pt will be able to report daily bowel movements (BMs) and proper technique for having a BM. STG Duration 07/09/19 (07/16/19: GOAL MET to pt's satisfaction) Fdc Goal (LTG) Pt will no longer feel a bulging of tissue in the PF. LTG Duration 08/06/19 (07/02/19: GOAL MET to pt's satisfaction). Three Impairment Decreased strength of lateral greenwood and anterior PF muscle ( 1-2/5) Short Term Goal (STG) Improve lateral wall strength of the PF to 3/5. STG Duration 07/09/19 (07/16/19: No change) Fdc Goal (LTG) Improve anterior PF strength to 3/5 LTG Duration 08/06/19 (07/16/19: No change ) Two Impairment Poor PF endurance of 2-3 sec hold prior to fatigue Bungy Jump Master Goal (LTG) Pt will be able to hold a PF contraction 10 secs prior to fatigue. LTG Duration 08/06/19 (07/16/19: Slightly improved) One Impairment Lacks appropriate HEP Fdc Goal (LTG) Pt will be independent in a self care HEP. LTG Duration 08/06/19 (08/06/19: Progressing) Assessment Summary Assessment Pt was last seen 08/06/19 prior to COVID 19 pandemic shutdown . She is doing her home ex's and applying what she had learned in therapy and feels she does not need to return to therapy at this time as she is trying to catch up on other appointments with reopening after COVID 19. The pt was unavailable for final assessment and is aware that she will need a new referral if she wants to return to physical therapy. Physical Therapy Plan Discharge Physical Therapy Discharge Reasons No Longer Attending PT Discharge Comments Pt is aware that she will need a new referral to return to therapy if she feels she needs more. Thank you for your referral.
== END 2020-03-24 09:22 ==
LOC: PHYS 10:30
PROVIDERS: Visit Provider Family Medicine
DX: N81.10 Cystocele, unspecified (principal); R32 Unspecified urinary incontinence; R29.898 Other symptoms and signs involving the musculoskeletal system
CPT/HCPCS: 97110; 97161; 97535

== ENCOUNTER 2019-10-17 12:42 | Emergency (ER) | payer MEDICARE, OTHER, SELFPAY ==
[2019-10-17 12:45] VITALS: BP 136/62; PULSE 87; RESP 16; TEMP 36.4; O2SAT 100
[2019-10-17 13:26] LABS: RBC Urine None Seen (0-5/HPF)
[2019-10-17 13:39] LABS: Bacteria Urine Occasional (0-1); Culture Indicated Urine Specimen Cultured; Squamous Epithelial Cell Urine 1-5 /HPF (0-5/HPF); WBC Urine 0-1/HPF (0-5/HPF)
--- NOTE | 2019-10-17 14:24 | DI.CT.S_ITS ---
PROCEDURE: CT ABDOMEN PELVIS W CON INDICATIONS: R flank and pain in McBurney's TECHNIQUE: After the administration of intravenous contrast, 5 mm thick sections acquired from the diaphragm to the symphysis. 5 mm coronal and sagittal reformats were acquired. For radiation dose reduction, the following was used: automated exposure control, adjustment of mA and/or kV according to patient size. COMPARISON: [facility], , CT ABDOMEN/PELVIS, 04/22/2002, 12:19. FINDINGS: Image quality: Excellent. ABDOMEN: Lung bases: Lung bases are clear. Heart size is normal. Solid organs: Liver is normal in size and enhancement. Gallbladder wall is not thickened. Biliary system is non dilated. Within the head of the pancreas, and 1.3 cm simple appearing cyst can be seen, as on series 2 image 33 and on series 4 image 14. No dilated pancreatic ducts can be seen. Spleen is normal in size and enhancement. No adrenal nodules. Kidneys demonstrate normal size and enhancement, without hydronephrosis. Peritoneum and bowel: In this patient with this given history, scrutiny is given to the appendix and right lower quadrant. A normal-appearing appendix is seen, as on series 4 image 21. No focal right lower quadrant auditory changes are seen. There is a moderate amount stool seen within colon. Nodes and vessels: No retroperitoneal or mesenteric adenopathy by size criteria. Aorta and inferior vena cava are normal in size. Miscellaneous: No ventral hernias. PELVIS: Genitourinary: Bladder wall thickness is normal. The uterus is atrophic. Miscellaneous: No inguinal hernias or adenopathy. Bones: No suspicious bony lesions. No vertebral body compression fractures. Age-appropriate bony degenerative changes are seen. IMPRESSION: Normal appendix. No focal right lower quadrant auditory changes are seen. No hydronephrosis. There is a moderate amount of stool seen within the colon. Please correlate with an underlying history of constipation. There is a 1.3 cm simple appearing cyst seen within the head of the pancreas. When clinically appropriate, please consider a followup dedicated pancreas protocol CT for further evaluation. Dictated by: Aubrey Gutierrez M.D. on 10/17/2019 at 14:43 Approved by: Aubrey Gutierrez M.D. on 10/17/2019 at 14:49
[2019-10-17 14:42] LABS: Add Manual Diff / Slide Review NO; Basophils Absolute Auto 0 /uL (0-100); Basophils Percent Auto 0.2 % (0-2); Eosinophils Absolute Auto 0 /uL (0-450); Hematocrit 42.6 % (36-46); Hemoglobin 14.3 g/dL (12.0-16.0); Lymphocytes Absolute Auto 600 /uL (1100-4500); Lymphocytes Percent Auto 4.7 % (25-40); Mean Corpuscular HGB Conc 33.6 % (30-36); Mean Corpuscular Hemoglobin 31.3 PG (26-34); Monocytes Absolute Auto 800 /uL (0-900); Monocytes Percent Auto 5.5 % (3-14); Neutrophils Absolute Auto 12300 /uL (1500-7000); Neutrophils Percent Auto 89.6 % (50-75); Platelet Count 184 X10^3/uL (150-400); Red Blood Cell Count 4.58 X10^6/uL (4.0-5.2); Red Cell Distribution Width 13.2 % (11.6-14.8); White Blood Cell Count 13.7 X10^3/uL (4.5-11.0)
--- NOTE | 2019-10-17 14:54 | ED.ABDPAIN ---
HPI - Abdominal Pain <CHARY Telles - Last Filed: 10/17/19 19:27> General Chief Complaint: Abdominal Pain Stated Complaint: moderate right side abd pain today Time Seen by Provider: 10/17/19 13:18 Source: patient Mode of arrival: Ambulatory Limitations: no limitations History of Present Illness HPI narrative: This is a 73-year-old female, nonsmoker, who presents to ED with spouse with chief complain of right flank pain radiating to right abdomen which started at 5:30 a.m. this morning which woke her up from sleep. Patient reports at that time her pain was pretty severe and rates as good 7/10. Patient reports currently she feels distal mild aches right lower quadrant and reports right flank pain has improved significantly. Patient reports pain is worse with movement and taking deep breaths. Patient had taken ibuprofen 600 mg this morning. Patient denies urinary symptoms such as urgency, frequency, dysuria, or hematuria. Patient has been feeling a little gassy and reports decreased appetite. Patient reports she is able to pass gas and had small amount of stool this morning after she had taken MiraLax and half cup of coffee. Patient denies nausea, vomiting, fever chills. Last meal was at 9:00 a.m. small amount of Polish yogurt and had taken half cup of coffee at 0 8 this morning. Patient denies previous history of abdominal surgeries but had breast biopsy and endometrial biopsies. Related Data Previous Rx's Medication Instructions Recorded albuterol sulfate [Proventil HFA] 0 IH SEE INSTRUCTIONS #1 [facility] 08/28/16 hydrochlorothiazide 12.5 mg PO QDAY #90 tab 08/28/16 Allergies Allergy/AdvReac Type Severity Reaction Status Date / Time Penicillins [PENICILLINS] Allergy Mild Unverified 10/01/17 11:49 Review of Systems <CHARY Telles - Last Filed: 10/17/19 19:27> Review of Systems Narrative: General: Denies fever, chills, fatigue, malaise, sweats. HEENT: Denies sinus pain, ear pain, sore throat, difficulty swallowing, dizziness. Respiratory: Denies dyspnea, cough, wheezing, hemoptysis, sputum. Cardiovascular: Denies chest pain, palpitations, orthopnea, edema. Gastrointestinal: See HPI : Denies dysuria, frequency, incontinence, hematuria, urinary retention, (+) right flank pain. Musculoskeletal: Denies weakness, joint pain or bony pain. Skin: Denies rash, skin lesions, or other. Neurologic: Denies weakness, headache, numbness, change in speech, confusion, seizures, incoordination. Psychiatric: No concerning psychosocial issues. 12-point review of systems is negative except for those stated above. Patient History <CHARY Telles - Last Filed: 10/17/19 19:27> Medical History (Updated 10/17/19 @ 16:44 by CHARY Telles) History of endometrial biopsy (Acute) Surgical History (Updated 10/17/19 @ 14:59 by CHARY Telles) H/O breast biopsy (Acute) Social History Smoking Status: Never smoker Smoking Status: Never smoker alcohol intake frequency: 0-2 drinks per day Substance Use Type: does not use Exam <CHARY Telles - Last Filed: 10/17/19 19:27> Narrative Exam Narrative: GEN: Alert, oriented x 3, well appearing and nourished, and in no acute distress. Head: Normal cephalic, atraumatic. No scalp or temporal tenderness, palpable mass or rash. EYES: Pupils are equal, round, and reactive to light and accommodation. Extraocular muscles are intact bilaterally. There is no subconjunctival hemorrhage, exudate and sclera non-icteric. ENT: Hearing grossly intact. Nose without bleeding, purulent discharge or deviation. Facial sinuses nontender to palpate. Mucous membrane moist, no mucosal lesion. Throat without erythema, tonsillar hypertrophy or exudate. Uvula in midline, airway patent. Neck: Trachea in midline. No JVD, non-tender without lymphadenopathy. No masses or thyroid megaly. Supple, non-tender and no meningeal signs. CARDIAC: Normal regular rate and rhythm without murmurs, gallops, or rubs. No chest wall tenderness. No peripheral edema, cyanosis or pallor. Capillary refill is less than 2 seconds. RESPIRATORY: Lungs are clear to auscultate bilaterally. No cough, wheezes, rales, or rhonchi. No stridor, respiratory distress, increase work of breathing, or accessary muscle used. ABD: Abdomen soft and non-distended. Right lower quadrant discomfort to palpate at Burney's point. No guarding to palpate. Bowel sounds are normal in all 4 quadrants. There is no palpable masses or organomegaly. EXT: Full painless ROM of all extremities with no loss of sensation, strength, effusion or edema. SKIN: Warm, dry, normal color for patient. No erythema, lesions or rash over visible areas. BACK: Nontender in spinal process without deformity or crepitance. Right flank tenderness to palpate. NEUROLOGICAL: Alert and oriented to place, time and person. Sensation and motor function intact bilaterally. No facial droops, dysphasia. PSYCHIATRIC: Good judgement and reason, without hallucinations, abnormal affect or abnormal behaviors during the examination. Initial Vital Signs Initial Vital Signs: Vital Signs Temperature 97.6 F 10/17/19 12:45 Pulse Rate 87 10/17/19 12:45 Respiratory Rate 16 10/17/19 12:45 Blood Pressure 136/62 10/17/19 12:45 Pulse Oximetry 100 10/17/19 12:45 <Silvano Diana MD - Last Filed: 10/20/19 07:49> Initial Vital Signs Initial Vital Signs: Vital Signs Temperature 97.6 F 10/17/19 12:45 Pulse Rate 87 10/17/19 12:45 Respiratory Rate 16 10/17/19 12:45 Blood Pressure 136/62 10/17/19 12:45 Pulse Oximetry 100 10/17/19 12:45 Scores <CHRAY Telles - Last Filed: 10/17/19 19:27> GCS Fairchance coma scale eye opening: Spontaneous Fairchance coma scale verbal response: Orientated Mansoor coma scale motor response: Obey commands Mansoor coma scale total score: 15 Course <CHARY Telles - Last Filed: 10/17/19 19:27> Orders Ordered: ED Orders 10/17/19 12:55 Urine Culture Stat Urine Microscopic Stat 10/17/19 14:24 CT abdomen pelvis w con Stat 10/17/19 14:30 Complete Blood Count AUTO DIFF Stat Comprehensive Metabolic Panel Stat Lipase Stat Vital Signs Vital signs: Vital Signs - 8 hr 10/17/19 12:45 10/17/19 16:55 Temperature 97.6 F Pulse Rate 87 78 Respiratory Rate 16 16 Blood Pressure 136/62 158/76 H Pulse Oximetry 100 98 <Silvano Diana MD - Last Filed: 10/20/19 07:49> Orders Ordered: ED Orders 10/17/19 12:55 Urine Culture Stat Urine Microscopic Stat 10/17/19 14:24 CT abdomen pelvis w con Stat 10/17/19 14:30 Complete Blood Count AUTO DIFF Stat Comprehensive Metabolic Panel Stat Lipase Stat Vital Signs Vital signs: Vital Signs - 8 hr 10/17/19 12:45 10/17/19 16:55 Temperature 97.6 F Pulse Rate 87 78 Respiratory Rate 16 16 Blood Pressure 136/62 158/76 H Pulse Oximetry 100 98 MDM - Abdominal Pain <Jonnathan AyalaCHARY Multani - Last Filed: 10/17/19 19:27> Differential Diagnosis Differential diagnosis: Likely abdominal pain, acute appendicitis, diverticulitis and other (Kidney infection, kidney stone) Medical Records Attestation: I reviewed the patient's medical records. Lab Data Attestation: I reviewed the patient's lab results. Result diagrams: 10/17/19 14:30 10/17/19 14:30 Labs: Lab Results 10/17/19 10/17/19 10/17/19 Range/Units 12:55 14:30 14:30 WBC 13.7 H (4.5-11.0) X10^3/uL RBC 4.58 (4.0-5.2) X10^6/uL Hgb 14.3 (12.0-16.0) g/dL Hct 42.6 (36-46) % MCV 93.0 (80-100) fL MCH 31.3 (26-34) PG MCHC 33.6 (30-36) % RDW 13.2 (11.6-14.8) % Plt Count 184 (150-400) X10^3/uL Neut % (Auto) 89.6 H (50-75) % Lymph % (Auto) 4.7 L (25-40) % Harmon % (Auto) 5.5 (3-14) % Eos % (Auto) 0.0 L (2-4) % Baso % (Auto) 0.2 (0-2) % Neut # (Auto) 71184 H (1385-5300) /uL Lymph # (Auto) 600 L (4571-2490) /uL Harmon # (Auto) 800 (0-900) /uL Eos # (Auto) 0 (0-450) /uL Baso # (Auto) 0 (0-100) /uL Sodium 136 L (137-145) mmol/L Potassium 4.1 (3.4-5.1) mmol/L Chloride 103 (98-107) mmol/L Carbon Dioxide 26 (22-32) mmol/L BUN 19 H (7-17) mg/dL Creatinine 0.70 (0.52-1.04) mg/dL Estimated GFR > 60.0 (>60) mL/min BUN/Creatinine Ratio 27.1 H (6-22) Glucose 121 H (80-110) mg/dL Calcium 9.6 (8.4-10.2) mg/dL Total Bilirubin 0.7 (0.2-1.3) mg/dL AST 62 H (14-36) IU/L ALT 43 H (<35) IU/L Alkaline Phosphatase 83 (38-126) U/L Total Protein 7.7 (6.3-8.2) g/dL Albumin 4.6 (3.5-5.0) g/dL Globulin 3.1 (1.7-4.1) g/dL Albumin/Globulin Ratio 1.5 (1.0-2.8) Lipase 84 (23-300) U/L Urine RBC None seen (0-5/HPF) Urine WBC 0-1/hpf (0-5/HPF) Ur Squamous Epith Cells 1-5 /hpf (0-5/HPF) Urine Bacteria Occasional (0-1) (None) Ur Culture Indicated? Specimen cultured Point of care testing: Urine Dip Bedside Urine Glucose Negative Bedside Urine Bilirubin - Negative Bedside Urine Ketone - Negative Urine Specific [place] 1.015 Bedside Urine Occult Blood - Negative Bedside Urine pH 6.0 Bedside Urine Protein +/- 15 Bedside Urine Urobilinogen - Negative Bedside Urine Nitrite - Negative Bedside Urine Leukocytes + [address] scan - abdomen/pelvis: Radiologist's Impression: [address] [address] [address] Scan Report Signed Patient: Aster Oneal JMR#: [id number] : 7Acct:[id number] Age/Sex: 73 / FDate of Service: 10/17/19 Loc: ED Accession Number: [id number] Procedure: CT abdomen pelvis w con Ordering Provider: Jonnathan Culver [employer] PROCEDURE: CT ABDOMEN PELVIS W CON INDICATIONS: R flank and pain in McBurney's TECHNIQUE: After the administration of intravenous contrast, 5 mm thick sections acquired from the diaphragm to the symphysis. 5 mm coronal and sagittal reformats were acquired. For radiation dose reduction, the following was used: automated exposure control, adjustment of mA and/or kV according to patient size. COMPARISON: [facility], , CT ABDOMEN/PELVIS, 04/22/2002, 12:19. FINDINGS: Image quality: Excellent. ABDOMEN: Lung bases: Lung bases are clear. Heart size is normal. Solid organs: Liver is normal in size and enhancement. Gallbladder wall is not thickened. Biliary system is non dilated. Within the head of the pancreas, and 1.3 cm simple appearing cyst can be seen, as on series 2 image 33 and on series 4 image 14. No dilated pancreatic ducts can be seen. Spleen is normal in size and enhancement. No adrenal nodules. Kidneys demonstrate normal size and enhancement, without hydronephrosis. Peritoneum and bowel: In this patient with this given history, scrutiny is given to the appendix and right lower quadrant. A normal-appearing appendix is seen, as on series 4 image 21. No focal right lower quadrant auditory changes are seen. There is a moderate amount stool seen within colon. Nodes and vessels: No retroperitoneal or mesenteric adenopathy by size criteria. Aorta and inferior vena cava are normal in size. Miscellaneous: No ventral hernias. PELVIS: Genitourinary: Bladder wall thickness is normal. The uterus is atrophic. Miscellaneous: No inguinal hernias or adenopathy. Bones: No suspicious bony lesions. No vertebral body compression fractures. Age-appropriate bony degenerative changes are seen. IMPRESSION: Normal appendix. No focal right lower quadrant auditory changes are seen. No hydronephrosis. There is a moderate amount of stool seen within the colon. Please correlate with an underlying history of constipation. There is a 1.3 cm simple appearing cyst seen within the head of the pancreas. When clinically appropriate, please consider a followup dedicated pancreas protocol CT for further evaluation. Dictated by: Aubrey Gutierrez M.D. on 10/17/2019 at 14:43 Approved by: Aubrey Gutierrez M.D. on 10/17/2019 at 14:49 [facility] Narrative Medical decision making narrative: This is a pleasant 73-year-old female who presents to ED with right flank pain radiating to right abdomen since this morning at 5:30 a.m.. Patient denies constitutional symptoms, urinary symptoms, vomiting but decreased appetite and p.o. intake. Patient reports pain increases with movement. Physical exam indicates right lower quadrant pain in McBurney's point with palpation without rebound or guarding. Patient was referred to emergency room after she was initially evaluated by EMS for further evaluation and imaging test. Serum glucose was 121. Patient had taken ibuprofen before coming into ED and reports pain as subsided a bit. There was mild leukocytosis of 13.7 with increased neutrophil of 89.6%. Chemistry test shows mild dehydration of BUN of 19, BUN/creatinine ratio of 27.1. Serum glucose was 121. Mild elevation of AST of 62 and ALT of 43. Lipase was normal as 84. Serum glucose was 121. CT test of abdomen and pelvis was obtained to rule out appendicitis or kidney stones. Kidney appears to be normal appearing without hydronephrosis or stones with normal appendix. There was moderate amount of stool in the colon. Also there is a simple appearing cyst in pancreas measuring in 1.3 cm. Patient advised to use MiraLax that she has been taking at home for constipation. Advised to follow up with primary care physician for further workup on pancreatic cyst. Patient reports she is feeling better at this time and declined anti nausea or pain medications while in ED. was positive for protein, urine leukocytes esterase without nitrites. Urine culture is pending. Return precautions were discussed with the patient and patient verbalized understanding and agreement with treatment plan. <Silvano Diana MD - Last Filed: 10/20/19 07:49> Lab Data Labs: Lab Results 10/17/19 10/17/19 10/17/19 Range/Units 12:55 14:30 14:30 WBC 13.7 H (4.5-11.0) X10^3/uL RBC 4.58 (4.0-5.2) X10^6/uL Hgb 14.3 (12.0-16.0) g/dL Hct 42.6 (36-46) % MCV 93.0 (80-100) fL MCH 31.3 (26-34) PG MCHC 33.6 (30-36) % RDW 13.2 (11.6-14.8) % Plt Count 184 (150-400) X10^3/uL Neut % (Auto) 89.6 H (50-75) % Lymph % (Auto) 4.7 L (25-40) % Harmon % (Auto) 5.5 (3-14) % Eos % (Auto) 0.0 L (2-4) % Baso % (Auto) 0.2 (0-2) % Neut # (Auto) 12049 H (2873-5118) /uL Lymph # (Auto) 600 L (3441-2207) /uL Harmon # (Auto) 800 (0-900) /uL Eos # (Auto) 0 (0-450) /uL Baso # (Auto) 0 (0-100) /uL Sodium 136 L (137-145) mmol/L Potassium 4.1 (3.4-5.1) mmol/L Chloride 103 (98-107) mmol/L Carbon Dioxide 26 (22-32) mmol/L BUN 19 H (7-17) mg/dL Creatinine 0.70 (0.52-1.04) mg/dL Estimated GFR > 60.0 (>60) mL/min BUN/Creatinine Ratio 27.1 H (6-22) Glucose 121 H (80-110) mg/dL Calcium 9.6 (8.4-10.2) mg/dL Total Bilirubin 0.7 (0.2-1.3) mg/dL AST 62 H (14-36) IU/L ALT 43 H (<35) IU/L Alkaline Phosphatase 83 (38-126) U/L Total Protein 7.7 (6.3-8.2) g/dL Albumin 4.6 (3.5-5.0) g/dL Globulin 3.1 (1.7-4.1) g/dL Albumin/Globulin Ratio 1.5 (1.0-2.8) Lipase 84 (23-300) U/L Urine RBC None seen (0-5/HPF) Urine WBC 0-1/hpf (0-5/HPF) Ur Squamous Epith Cells 1-5 /hpf (0-5/HPF) Urine Bacteria Occasional (0-1) (None) Ur Culture Indicated? Specimen cultured Point of care testing: Urine Dip Bedside Urine Glucose Negative Bedside Urine Bilirubin - Negative Bedside Urine Ketone - Negative Urine Specific [place] 1.015 Bedside Urine Occult Blood - Negative Bedside Urine pH 6.0 Bedside Urine Protein +/- 15 Bedside Urine Urobilinogen - Negative Bedside Urine Nitrite - Negative Bedside Urine Leukocytes + 70 Esterase Discharge Plan Departure Patient Disposition: Home Clinical Impression: Flank pain, Acute abdominal pain in right lower quadrant Discharge Date/Time: 10/17/19 16:56 Instructions: DI for Abdominal Pain-Adult, DI for Flank Pain Activity Restrictions/Additional Instructions: You have been diagnosed with [right flank pain radiating to right lower abdomen. Urine culture is pending. It showed small amount of leukocytes esterase without urine nitrites. Mildly elevated WBC as 13.7. Appears to be you are mildly dehydrated. Slightly elevated in AST (62) and ALT (43). Gallbladder, pancreas, spleen appears to be normal. No obvious indication for appendicitis today. Kidney appears to be normal. There is a simple appearing cyst in pancreas measuring 1.3 cm which should be followed up with your primary care doctor for further pancreas protocol CT in the future. Your pain may related to back pain in musculoskeletal origin]. What to do: *Take your medications as directed. You can take [id number] Tylenol and or Motrin as needed for pain. *Follow up with your primary care provider in 2-3 days, call for an appointment. Let them know you were seen in the ED and that we asked you to be seen in follow up. *Return to ED if you have any new, worsening, or concerning symptoms, such as [fever, vomiting, increasing pain, chest pain, breathing difficulty, blood in your urine, urinary symptoms or any acute concerns]. Prescriptions: No Action hydrochlorothiazide 12.5 MG tablet 12.5 mg PO QDAY Qty: 90 RF: 1 albuterol sulfate [Proventil HFA] 90 MCG/PUFF HFA aerosol inhaler 0 IH SEE INSTRUCTIONS Qty: 1 RF: 1 Referrals: Margot Reyna MD [Primary Care Provider] -
[2019-10-17 14:55] LABS: Alanine Aminotransferase 43 IU/L (<35); Albumin 4.6 g/dL (3.5-5.0); Albumin Globulin Ratio 1.5 (1.0-2.8); Alkaline Phosphatase 83 U/L (38-126); Aspartate Aminotransferase 62 IU/L (14-36); BUN Creatinine Ratio 27.1 (6-22); Bilirubin Total 0.7 mg/dL (0.2-1.3); Blood Urea Nitrogen 19 mg/dL (7-17); Calcium 9.6 mg/dL (8.4-10.2); Carbon Dioxide 26 mmol/L (22-32); Chloride 103 mmol/L (98-107); Estimated Glomerular Filt Rate > 60.0 mL/min (>60); Globulin 3.1 g/dL (1.7-4.1); Glucose 121 mg/dL (80-110); HEMOLYSIS 23 (0-50); Lipase 84 U/L (23-300); Potassium 4.1 mmol/L (3.4-5.1); Sodium 136 mmol/L (137-145); Total Protein 7.7 g/dL (6.3-8.2)
[2019-10-17 16:55] VITALS: BP 158/76; PULSE 78; RESP 16; O2SAT 98
== END 2019-10-17 16:56 | disposition home or self-care (01) ==
PROVIDERS: Emergency Provider Nurse Practitioner Family; PCP Family Medicine
DX: R10.31 Right lower quadrant pain (principal)
CPT/HCPCS: 36415; 74177; 80053; 81003; 81015; 83690; 85025; 87086; 99284; Q9967

== ENCOUNTER → 2021-08-10 10:12 | Outpatient (CLI) | payer MEDICARE, OTHER, SELFPAY ==
[2021-08-10 19:40] LABS: Add Manual Diff / Slide Review NO; Basophils Absolute Auto 0 /uL (0-100); Basophils Percent Auto 0.2 % (0-2); Eosinophils Absolute Auto 0 /uL (0-450); Eosinophils Percent Auto 0.8 % (2-4); Hematocrit 40.8 % (36-46); Hemoglobin 13.6 g/dL (12.0-16.0); Lymphocytes Absolute Auto 1000 /uL (1100-4500); Lymphocytes Percent Auto 24.3 % (25-40); Mean Corpuscular HGB Conc 33.3 % (30-36); Mean Corpuscular Hemoglobin 30.9 PG (26-34); Mean Corpuscular Volume 92.8 fL (80-100); Monocytes Absolute Auto 400 /uL (0-900); Monocytes Percent Auto 8.5 % (3-14); Neutrophils Absolute Auto 2800 /uL (1500-7000); Neutrophils Percent Auto 66.2 % (50-75); Platelet Count 216 X10^3/uL (150-400); Red Blood Cell Count 4.39 X10^6/uL (4.0-5.2); Red Cell Distribution Width 13.4 % (11.6-14.8); White Blood Cell Count 4.2 X10^3/uL (4.5-11.0)
[2021-08-10 19:46] LABS: Alanine Aminotransferase 29 IU/L (<35); Albumin 4.5 g/dL (3.5-5.0); Albumin Globulin Ratio 1.8 (1.0-2.8); Alkaline Phosphatase 76 U/L (38-126); Aspartate Aminotransferase 43 IU/L (14-36); BUN Creatinine Ratio 17.1 (6-22); Bilirubin Total 0.6 mg/dL (0.2-1.3); Blood Urea Nitrogen 13 mg/dL (7-17); Calcium 9.4 mg/dL (8.4-10.2); Carbon Dioxide 30 mmol/L (22-32); Chloride 102 mmol/L (98-107); Cholesterol 211 mg/dL (140-199); Estimated Glomerular Filt Rate > 60.0 mL/min (>60); Globulin 2.5 g/dL (1.7-4.1); Glucose 115 mg/dL (80-110); HEMOLYSIS < 15 (0-50); Potassium 4.2 mmol/L (3.4-5.1); Sodium 136 mmol/L (137-145); Triglycerides 47 mg/dL (35-150)
[2021-08-10 19:56] LABS: HDL Cholesterol 108 mg/dL (40-60); LDL Cholesterol Calculated 94 mg/dL (<100)
[2021-08-10 19:58] LABS: Gamma Glutamyl Transpeptidase 36 U/L (12-43)
[2021-08-10 20:01] LABS: Free T3, Triiodothyronine Free 3.06 pg/mL (2.77-5.27)
[2021-08-10 20:15] LABS: TSH w/ Reflex to FT4 0.97 uIU/mL (0.47-4.68)
== END ==
PROVIDERS: PCP Physician Assistant Medical; Visit Provider Physician Assistant Medical
DX: R07.89 Other chest pain (principal); R74.8 Abnormal levels of other serum enzymes; M54.50 Low back pain, unspecified; R53.83 Other fatigue; I10 Essential (primary) hypertension; I49.9 Cardiac arrhythmia, unspecified; K59.00 Constipation, unspecified
CPT/HCPCS: 80053; 80061; 82977; 84443; 84481; 85025